=== PATIENT | male | born 1970 | race Caucasian/White ===

== ENCOUNTER 2020-01-13 09:59 | Emergency (ER) | payer OTHER ==
[~2020-01-13] VITALS: Ht 160 cm; Wt 85.7 kg
[2020-01-13] MEDS ORDERED: MECLIZINE HCL25 MG PO (14:58)
== END 2020-01-13 19:09 | disposition home or self-care (01) ==
LOC: ER 09:59
DX: R42 Dizziness and giddiness (principal)